=== PATIENT | male | born 1975 | race Caucasian/White ===

== ENCOUNTER 2023-03-13 09:38 | Emergency (ER) | payer BC, SELFPAY ==
[2023-03-13] VITALS (8 sets, daily range): BP systolic 180–187; BP diastolic 106–107; PULSE 53–79; RESP 16–21; TEMP 36.6; O2SAT 95–99
--- NOTE | ~2023-03-13 | XR_ITS ---
EXAMINATION: XR chest 1V portable DATE: 03/13/2023 10:19 INDICATION: Right-sided body numbness. TECHNIQUE: A single frontal view of the chest was obtained. COMPARISON: CT abdomen and pelvis 07/06/2016 FINDINGS: The chest demonstrates clear lungs without pneumonia, pleural effusion, or pneumothorax. Th e heart size is normal. IMPRESSION: 1. No acute cardiopulmonary disease. Reviewed, dictated and finalized at location A.
--- NOTE | ~2023-03-13 | CT_ITS ---
EXAMINATION: CTA brain carotid DATE: 03/13/2023 10:55 INDICATION: Right-sided body numbness. TECHNIQUE: Computed tomographic angiography (CTA) of the head was performed with 100 mL Omnipaque-350 intravenous contrast. CTA of the neck was performed with intravenous contrast. Automated exposure co ntrol and iterative reconstruction technique were employed. The dose-length product was 1271.03 mGy-c m. Maximum intensity projection and volume rendered 3D-reconstructions were created by the technologi st on a separate workstation. COMPARISON: Head CT 03/13/2023 FINDINGS: HEAD CTA: There is no intracranial hemorrhage, acute infarction, or abnormal intracranial mass lesion . The ventricles are normal in size. There is mucosal thickening in the paranasal sinuses. The mastoi d air cells are normal. Vertebral body heights are normal. The vertebral arteries are codominant. The re is no significant stenosis of basilar artery or the posterior cerebral arteries. There is no signi ficant stenosis of intracranial internal carotid arteries or anterior or middle cerebral arteries. An terior communicating artery is normal. The posterior communicating arteries are normal. There is no a neurysm. NECK CTA: There are no pathologically enlarged lymph nodes. There is a 3 mm thyroid nodule, likely no t clinically significant. There is no significant stenosis of the vertebral arteries. There is no vis ible plaque in the proximal internal carotid arteries. There is 0% stenosis of the proximal right int ernal carotid artery relative to normal distal artery lumen diameter (NASCET criteria). There is 0% s tenosis of the proximal left internal carotid artery relative to normal distal artery lumen diameter. There is mild cervical spondylosis. IMPRESSION: 1. Normal brain. No aneurysm or significant intracranial arterial stenosis. 2. 0% stenosis of the proximal internal carotid arteries relative to normal distal artery lumen diame ters (NASCET criteria). Reviewed, dictated and finalized at location A. IMPRESSION: 1. Normal brain. No aneurysm or significant intracranial arterial stenosis. 2. 0% stenosis of the proximal internal carotid arteries relative to normal dis beryl artery lumen diameters (NASCET criteria).
--- NOTE | ~2023-03-13 | CT_ITS ---
EXAMINATION: CT brain wo con DATE: 03/13/2023 10:06 INDICATION: Right-sided body numbness. TECHNIQUE: Computed tomography (CT) of the head was performed without intravenous contrast. The mA wa s adjusted according to patient size. Iterative reconstruction technique was employed. The dose-lengt h product was 605.33 mGy-cm. COMPARISON: None FINDINGS: There is no intracranial hemorrhage, acute infarction, or abnormal intracranial mass lesion . The ventricles are normal in size. There is mucosal thickening in the paranasal sinuses. The orbits are normal. The mastoid air cells are normal. IMPRESSION: 1. Normal brain. Reviewed, dictated and finalized at location A. IMPRESSION: 1. Normal brain.
--- NOTE | 2023-03-13 09:56 | ECG_ITS ---
Measurements Intervals [place] Rate: 57 P: 43 MT: 168 QRS: 69 QRSD: 114 T: 60 QT: 412 QTc: 402 Interpretive Statements SINUS BRADYCARDIA POSSIBLE LEFT ATRIAL ENLARGEMENT INTRAVENTRICULAR CONDUCTION DELAY DELAYED PRECORDIAL R/S TRANSITION BORDERLINE ECG NO PREVIOUS ECG AVAILABLE FOR COMPARISON Electronically Signed On 03-13-2023 16:42:24 CDT by Amarjit Trinh D.O.
[2023-03-13 10:23] LABS: Basophils Percent Auto 0.8 % (0.2-1.2); Eosinophils Absolute Auto 0.2 K/mm3 (0-0.3); Eosinophils Percent Auto 3.8 % (0-4.4); Hematocrit 46.5 % (42.0-52.0); Hemoglobin 15.6 g/dL (14.0-18.0); Immature Granulocyte Absolute 0.01 K/mm3 (0.00-0.031); Immature Granulocyte Percent A 0.2 % (0-0.5); Lymphocytes Absolute Auto 1.23 K/mm3 (0.9-3.2); Lymphocytes Percent Auto 25.8 % (18.3-44.2); Mean Corpuscular HGB Conc 33.5 g/dl (32-36); Mean Corpuscular Hemoglobin 29.1 pg (26-34); Mean Corpuscular Volume 86.6 fl (80-100); Mean Platelet Volume 10.4 fl (7.4-10.4); Monocytes Absolute Auto 0.5 K/mm3 (0.1-0.6); Monocytes Percent Auto 11.3 % (2.6-8.5); Neutrophils Absolute Auto 2.8 K/mm3 (1.3-6.7); Neutrophils Percent Auto 58.1 % (45.5-73.1); Platelet Count Result 249 k/mm3 (150-375); Red Blood Count 5.37 M/mm3 (4.6-6.20); Red Cell Distribution Width 12.7 % (11.5-14.5); White Blood Count 4.8 K/mm3 (4.5-10.0)
--- NOTE | 2023-03-13 10:27 | ED.NEUROSD ---
HPI - Neuro Symptoms/Deficit General Chief Complaint: Neuro Symptoms/Deficit Stated Complaint: headache with with right sided numbness Time Seen by Provider: 03/13/23 10:05 Source: patient and family Mode of arrival: ambulatory Limitations: no limitations History of Present Illness HPI Narrative: 47 years old white male was taken a shower this morning and at the end of it started feeling numbness and heaviness of the right upper extremity then right face then right lower extremity, got out of the shower and was unsteady, feeling that the whole right side is heavy and tingling and numb including right face. Patient feels like he have anesthesia of the right face,. The symptoms started at 830 this morning, came to our emergency room 45 minutes to 55 minutes later by private car. Patient reports frontal headache over the last few days. Patient is healthy otherwise, does not take medicine at home, denies any fever, chills, nausea, vomiting, chest pain, shortness of breath, back pain. Quite a bit of stress at work and at home lately. Related Data Home Medications Medication Instructions Recorded Confirmed No Home Medications 10/21/22 10/21/22 Allergies Allergy/AdvReac Type Severity Reaction Status Date / Time Penicillins Allergy Unknown Unknown Verified 03/13/23 10:35 Review of Systems Review of Systems: All systems reviewed & are unremarkable except as noted in HPI and below PMFSH Surgical History Surgical History Hx of inguinal hernia repair Family History Family History Father Diabetes mellitus Family history of malignant neoplasm Cancer Mother Diabetes mellitus CHF (congestive heart failure) Social History Social History Smoking status: Never smoker Alcohol intake: current Substance use: never Lack of Transportation: No Lack of Food: Never True Current Housing: I Have Housing Concerned About Future Housing: No Difficulty Paying Gas/Electric Bills: No Difficulty Paying for Meds: No Currently Unemployed: No Education: Associate Degree Difficulty w/ Childcare or Family Care: No Exam Narrative: General appearance: Well-developed, well-nourished Skin: Normal color Head: Normocephalic, nontraumatic Eyes: Clear conjunctiva ENT: Oropharynx normal, ears normal, nose normal Neck: Supple, nontender Chest and respiratory: Airway patent, no respiratory distress, no accessory muscle use Heart: Regular rate/rhythm Abdomen: Soft, nontender, no organomegaly, quiet bowel sounds Vascular: Normal peripheral pulses, normal capillary refill. Musculoskeletal: Normal range of motion, nontender back Neurologic: Alert and oriented ?3, weakness right upper and right lower extremity Course Reevaluation(s) Reevaluation #1: No new changes since arrival to the emergency room until the time of discharge, patient was started on tPA and flew to [facility] Date: 03/13/23 Time: 11:36 Consultations Consultation #1: DR BORGES, neurologist at [facility] who accepted patient transfer and I agreed with our management Date: 03/13/23 Time: 10:48 Consultation #2: DR BUCHANAN, emergency room at [facility] Date: 03/13/23 Time: 10:49 Vital Signs Vital signs: Vital Signs Blood Pressure 187/107 H 03/13/23 09:47 Pulse Oximetry 96 03/13/23 09:47 Temperature 36.6 C 03/13/23 10:00 Pulse Rate 79 03/13/23 11:00 Respiratory Rate 20 03/13/23 11:00 Blood Pressure 180/106 H 03/13/23 10:57 Pulse Oximetry 98 03/13/23
[2023-03-13 10:33] LABS: Alanine Aminotransferase 40 U/L (6-50); Albumin Level 4.1 g/dL (3.5-5.1); Alkaline Phosphatase 55 U/L (38-126); Anion Gap 7 mmol/L (8-16); Aspartate Amino Transferase 38 U/L (17-59); Bilirubin,Total 0.7 mg/dL (0.2-1.3); Blood Urea Nitrogen 19 mg/dL (9-20); Calcium 8.4 mg/dL (8.4-10.2); Carbon Dioxide 27 mmol/L (22-30); Chloride 105 mmol/L (98-107); Estimated CRCL calculation 129 ml/min; Estimated Glomerular Filt Rate > 60; Glucose 100 mg/dL (65-110); INR 0.9; Potassium 4.3 mmol/L (3.4-5.0); Prothrombin Time 12.5 Seconds (11.1-14.7); Sodium 139 mmol/L (137-145)
[2023-03-13 10:45] LABS: Troponin I < 0.012 ng/mL (0.000-0.034)
== END 2023-03-13 11:05 | disposition short-term general hospital (02) ==
PROVIDERS: Emergency Provider Emergency Medicine
DX: I63.9 Cerebral infarction, unspecified (principal); R00.1 Bradycardia, unspecified
CPT/HCPCS: 36415; 37195; 70450; 70496; 70498; 71045; 80053; 84484; 85025; 85610; 85730; 93005; 99285; J2997; Q9967

== ENCOUNTER → 2023-07-22 15:03 | Outpatient (CLI) | payer BC, SELFPAY ==
--- NOTE | ~2023-07-22 | MR_ITS ---
EXAMINATION: MR brain/brain stem wo/w con DATE: 07/22/2023 16:15 INDICATION: Transient ischemic attack. TECHNIQUE: Magnetic resonance imaging (MRI) of the brain and brainstem was performed without and with 20 mL MultiHance intravenous contrast. COMPARISON: Head CT 03/13/2023 FINDINGS: There is an acute infarct in left thalamus. There is no intracranial hemorrhage or abnormal mass lesion. The ventricles are normal in size. The paranasal sinuses are clear. The orbits are norm al. The mastoid air cells are normal. IMPRESSION: 1. Acute infarct in the left thalamus. Reviewed, dictated and finalized at location E.
--- NOTE | ~2023-07-22 | MR_ITS ---
EXAMINATION: MR cervical spine wo/w con DATE: 07/22/2023 16:15 INDICATION: Right-sided numbness. Transient ischemic attack. TECHNIQUE: Magnetic resonance imaging (MRI) of the cervical spine was performed without and with 20 m L MultiHance intravenous contrast. COMPARISON: None FINDINGS: There is kyphosis of cervical spine. Vertebral body heights and intervertebral disc heights are normal. The spinal cord signal intensity is normal. The following disc levels are specifically d iscussed: C2-C3: The disc does not extend beyond the endplate margin. There is no uncovertebral joint osteoarth ritis. There is mild bilateral facet joint osteoarthritis. There is no neural foraminal stenosis. The re is no central canal stenosis. C3-C4: The disc does not extend beyond the endplate margin. There is mild left uncovertebral joint os teoarthritis. There is mild bilateral facet joint osteoarthritis. There is no neural foraminal stenos is. There is no central canal stenosis. C4-C5: The disc does not extend beyond the endplate margin. There is no uncovertebral joint osteoarth ritis. There is no facet joint osteoarthritis. There is no neural foraminal stenosis. There is no kyler tral canal stenosis. C5-C6: The disc does not extend beyond the endplate margin. There is no uncovertebral joint osteoarth ritis. There is mild bilateral facet joint osteoarthritis. There is no neural foraminal stenosis. The re is no central canal stenosis. C6-C7: The disc does not extend beyond the endplate margin. There is no uncovertebral joint osteoarth ritis. There is mild bilateral facet joint osteoarthritis. There is no neural foraminal stenosis. The re is no central canal stenosis. C7-T1: The disc does not extend beyond the endplate margin. There is no uncovertebral joint osteoarth ritis. There is severe bilateral facet joint osteoarthritis. There is mild bilateral neural foraminal stenosis. There is no central canal stenosis. IMPRESSION: 1. Mild cervical spondylosis. Reviewed, dictated and finalized at location E.
== END ==
DX: G04.91 Myelitis, unspecified (principal); G45.9 Transient cerebral ischemic attack, unspecified; M47.892 Other spondylosis, cervical region
CPT/HCPCS: 70553; 72156; A9577

== ENCOUNTER 2023-12-09 11:29 | Outpatient (CLI) | payer BC, SELFPAY ==
--- NOTE | ~2023-12-09 | MR_ITS ---
EXAMINATION: MR brain/brain stem wo con DATE: 12/09/2023 12:05 INDICATION: Cerebral vascular accident. Right arm, right leg, and face numbness. TECHNIQUE: Magnetic resonance imaging (MRI) of the brain and brainstem was performed without intraven ous contrast. COMPARISON: Brain MRI 07/22/2023, head CT 03/13/2023 FINDINGS: There is no intracranial hemorrhage, acute infarction, or abnormal intracranial mass lesion . There is an old infarct in left thalamus. The ventricles are normal in size. There is mild mucosal thickening in the paranasal sinuses. The mastoid air cells are normal. IMPRESSION: 1. Old infarct in the left thalamus. Reviewed, dictated and finalized at location E. 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
== END 2023-12-09 11:30 ==
PROVIDERS: PCP Physician Assistant Medical
DX: I63.89 Other cerebral infarction (principal)
CPT/HCPCS: 70551

== ENCOUNTER 2024-08-11 06:42 | Outpatient (CLI) | payer BC, SELFPAY ==
--- NOTE | 2024-08-15 11:12 | WPDNEUROLOGY ---
Neurology EEG Report General Information Date of Study: 08/11/24 TEST Eeg DIAGNOSIS cerebral infarction. CONDITION OF RECORDING Awake, drowsy and asleep. EEG NUMBER [id number] CLINICAL HISTORY Patient reports he has had 2 strokes about a year ago that affected his right side of the body. Everything seemed to get better but feels like some of the symptoms on the right side have returned. Complains of right-sided facial, right upper extremity and right lower extremity numbness. EEG DESCRIPTION Basic resting occipital frequency consists of fairly well-organized low voltage 9 to 11 hertz per 2nd alpha admixed with low-voltage 15 to 18 hertz per 2nd beta. Low-voltage beta activity seen diffusely admixed with waxing and waning posterior alpha rhythm interspersed with intermittent EKG artifacts. Bilateral symmetrical sleep activity is noted with mixture of alpha beta and theta activity evolving into deeper stage of sleep with bilateral symmetrical sleep spindles. Hyperventilation not done. Photic stimulation produced normal drive. Non paroxysmal. Nonfocal. Nonlateralizing. IMPRESSION Normal record.
== END 2024-08-11 06:43 | disposition home or self-care (01) ==
PROVIDERS: PCP Physician Assistant Medical; Visit Provider Physician Assistant Medical
DX: I63.9 Cerebral infarction, unspecified (principal); G62.9 Polyneuropathy, unspecified
CPT/HCPCS: 95816

== ENCOUNTER 2024-08-28 09:34 | Outpatient (CLI) | payer BC, SELFPAY ==
--- NOTE | ~2024-08-28 | MR_ITS ---
EXAMINATION: MR brain/brain stem wo/w con DATE: 08/28/2024 10:25 INDICATION: Cervical infarction, unspecified. TECHNIQUE: Magnetic resonance imaging (MRI) of the brain and brainstem was performed without and with 20 mL MultiHance intravenous contrast. COMPARISON: Brain MRI 12/09/2023 FINDINGS: There is an old infarct in the left thalamus. There is no intracranial hemorrhage, acute in farction, or abnormal intracranial mass lesion. The ventricles are normal in size. The mastoid air ce lls are normal. There is mild mucosal thickening in the paranasal sinuses. The orbits are normal. IMPRESSION: 1. Old infarct in the left thalamus. Reviewed, dictated and finalized at location A. 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
== END 2024-08-28 09:35 | disposition home or self-care (01) ==
LOC: MICIMG 09:35
PROVIDERS: PCP Physician Assistant Medical; Visit Provider Physician Assistant Medical
DX: I63.9 Cerebral infarction, unspecified (principal); G62.9 Polyneuropathy, unspecified
CPT/HCPCS: 70553; A9577

== ENCOUNTER 2024-12-19 15:56 | Emergency (ER) | payer BC, SELFPAY ==
[2024-12-19 16:05] VITALS: BP 132/83; PULSE 107; RESP 18; TEMP 36.7; O2SAT 96
--- NOTE | 2024-12-19 16:17 | ED_ITS ---
HPI - URI/Sore Throat General Chief Complaint: Upper Respiratory Infection Stated Complaint: cold / congestion / fever Source: patient and RN notes reviewed Mode of arrival: ambulatory Limitations: no limitations History of Present Illness HPI Narrative: 49 y/o male with hx HTN and CVA presented for c/o headache, body aches, sinus drainage/congestion, cough, fever/chills. Onset 3 days. Started with nausea and diarrhea today. Denies sob, wheezing, or lethargy. Taking Tylenol and Coricidin. MD elicited complaint: cough Related Data Home Medications ?Medication ?Instructions ?Recorded ?Confirmed ?Last Taken ?Type atorvastatin 80 mg tablet 80 mg PO DAILY 11/26/23 11/17/24 Unknown History cyanocobalamin (vitamin B-12) 2,000 mcg PO DAILY 11/29/23 11/17/24 Unknown History 2,000 mcg tablet Allergies Allergy/AdvReac Type Severity Reaction Status Date / Time Penicillins Allergy Unknown Unknown Verified 12/19/24 16:23 Review of Systems Review of Systems: per [facility] Past Medical History Medical History CVA (cerebral vascular accident) 02/2023 probable TIA, 07/18/23 repeat YURIY (obstructive sleep apnea) HTN (hypertension) Dyslipidemia Surgical History Surgical History Hx of inguinal hernia repair Family History Family History Father Diabetes mellitus Family history of malignant neoplasm Cancer Mother Diabetes mellitus CHF (congestive heart failure) Social History Social History Social History: 11/17/24 patient declined SDOH Smoking status: Never smoker Alcohol intake: current Substance use: never Substance use type: does not use Do You Feel Safe in your Home?: Yes Lack of Transportation: No Lack of Food: Never True Current Housing: Decline to Answer Concerned About Future Housing: Decline to Answer Difficulty Paying Gas/Electric Bills: Decline to Answer Difficulty Paying for Meds: Decline to Answer Currently Unemployed: Decline to Answer Education: Decline to Answer Difficulty w/ Childcare or Family Care: No Living arrangements: with family Occupation/Education: occupation Gender identity (if verbalized by the patient): Male Sexual Orientation (if Verbalized by the Patient): Straight or Heterosexual Exam Narrative: GENERAL: mildly Ill-appearing, nontoxic EYES: PERRLA, conjunctivae clear ENT: Mucous membranes moist. TM pearly osborne with dull light reflex bilaterally; no tragal tenderness. Oropharynx erythematous without lesions or exudate, no drooling, no hoarseness, no trismus, uvula midline. CHEST: Clear to auscultation, breath sounds equal. No wheezing, rhonchi, rales, or stridor. No respiratory distress, speaks in full sentences. HEART: Regular rate and rhythm. SKIN: Warm, dry, no rash. NEURO: Alert and oriented x3. PSYCH: Normal mood and affect Course Course Emergency Course: Patient is aware of diagnosis, understands and agrees to treatment plan. Anticipatory guidance given. Patient agrees to follow-up as directed and is aware of reasons to seek care at the emergency department. Portions of this record may have been created with voice recognition software Level of Care: Express Care Visit Vital Signs Vital signs: Vital Signs Temperature 98.1 F 12/19/24 16:05 Pulse Rate 107 H 12/19/24 16:05 Respiratory Rate 18 12/19/24 16:05 Blood Pressure 132/83 12/19/24 16:05 Pulse Oximetry 96 12/19/24 16:05 Oxygen Delivery Room Air 12/19/24 16:05 Temperature 98.1 F 12/19/24 16:05 Pulse Rate 107 H 12/19/24 16:05 Respiratory Rate 18 12/19/24 16:05 Blood Pressure 132/83 12/19/24 16:05 Pulse Oximetry 96 12/19/24 16:05 Oxygen Delivery Room Air 12/19/24 16:05 reviewed MDM - URI/Sore Throat MDM Narrative Medical decision making narrative: Positive flu. Discussed physical exam findings. Advised supportive measures and signs/symptoms to go to the ER. Pt is appropriate for outpt treatment and f/u. Differential Diagnosis Differential diagnosis: Likely upper respiratory infection, sinusitis, viral infection, bronchitis and influenza Lab Data Labs: Lab Results 12/19/24 Range/Units 16:19 POC Influenza A Ag Positive (Negative) POC Influenza B Ag Negative (Negative) POC SARS CoV-2 Ag Negative (Negative) Discharge Plan Discharge Clinical Impression: Influenza Patient Disposition: Home, Self-Care Condition: Stable Instructions: Antibiotic Form, Influenza (ED) Additional Instructions: Influenza positive You should avoid crowds until you are fever free for 24 hours without the use of fever reducing medications, or the symptoms are improved Rest. Drink plenty of fluids. Tylenol 1000mg every 8 hours as needed for pain/fever Flonase spray and Zyrtec (or Claritin/Michell) for sinus pressure/congestion over the counter Cough syrup may cause drowsiness; avoid driving or take it at night time. Follow up with your primary care provider as needed Go to the ER for worsening symptoms or concerns Patient Language: Citizen Of [place] Prescriptions: No Action atorvastatin 80 mg tablet 80 mg PO DAILY cefdinir 300 mg capsule 300 mg PO Q12H Qty: 20 0RF cyanocobalamin (vitamin B-12) 2,000 mcg tablet 2,000 mcg PO DAILY losartan 50 mg tablet 50 mg PO DAILY Qty: 90 0RF losartan-hydrochlorothiazide 50-12.5 mg tablet 1 tablet PO DAILY Qty: 90 0RF aspirin 81 mg tablet,chewable 81 mg PO DAILY Qty: 90 0RF Follow-up/Referrals: Phylicia Gill PA-C [Primary Care Provider] - Stand Alone Forms: Work/School Release IP Time of Disposition: 16:33
[2024-12-19 16:21] LABS: EDCOVIDSCREEN Negative (Negative); EDINFLUASCREEN Positive (Negative); EDINFLUBSCREEN Negative (Negative)
--- OUTSIDE RECORDS SUMMARY | 2024-12-19 18:03 | XMS_ITS | Encounter Summary ---
Author Organization [facility] Address [facility] [place] [address] Care Team Providers Care Dairy Grazer Name Role Phone Phylicia Gill PA-C Primary Care Provider [phone] Encounter Details Date Type Department Care Team (Late st Contact Info) Description 11/18/2023 Abstract [facility] [address] [place] [address] Joanna Nguyen MA Social History Tobacco Use Types Packs/Day Years Used Date Smoking Tobacco: Never Smokeless Tobacco: Never Alcohol Use Standard Drinks/Week Comments Yes 0 (1 standard drink = 0.6 oz pur e alcohol) 1-3/week Sex and Gender Information Value Date Recorded Sex Assigned at Male 11/29/2024 2:21 PM SPECIAL EDUCATION TEACHING ASSISTANT Legal Sex Male 7:57 PM CDT Gender Identity Not on file Sexual Orientation Not on file documented as of this encounter Plan of Treatment Upcoming Encounters Date Type Department Care Team (Late st Contact Info) Description 05/31/2025 10:30 AM CDT [facility] [address] [place] [phone] Jensen Michele MD [facility]. [address] [place] [address] 10/29/2025 8:00 AM SPECIAL EDUCATION TEACHING ASSISTANT Office Visit [facility] [address] [facility], [address] [place] [address] Daxa Pappas MD [address] [place] [address] documented as of this encounter Procedures Procedure Name Priority Date/Time Associated Diagnosis Comments AST/SGOT Routine 02/24/2024 LIPID PANEL Routine 02/24/2024 ALT/SGPT Routine 02/24/2024 COMPREHENSIVE METABOLIC PANEL Routine 08/10/2023 LIPID PANEL Routine 08/10/2023 documented in this encounter Results * LIPID PANEL (02/24/2024) CHOLESTEROL 144 HDL 39 TRIGLYCERIDES 104 NON HDL CHOLESTEROL 105 LDL (CALCULATED) 85 02/24/2024 us Default History Genericprovider LABORATORY Edited Result - Final * AST/SGOT (02/24/2024) AST 22 02/24/2024 us Default History Genericprovider LABORATORY Edited Result - Final * ALT/SGPT (02/24/2024) ALT 32 02/24/2024 us Default History Genericprovider LABORATORY Final Result * COMPREHENSIVE METABOLIC PANEL (08/10/2023) AST 20 ALT 28 us Default History Genericprovider LABORATORY Final Result * LIPID PANEL (08/10/2023) CHOLESTEROL 142 TRIGLYCERIDES 122 HDL 36 LDL (CALCULATED) 84 us Default History Genericprovider LABORATORY Final Result documented in this encounter Visit Diagnoses Not on filedocumented in this encounter Care Teams Dairy Grazer Relationship Specialty Start Date End Date Phylicia Gill PA-C [address] [place] [id number] PCP - General PHYSICIAN FACILITIES OPERATIONS TECHNICIAN 08/03/23 documented as of this encounter
--- OUTSIDE RECORDS SUMMARY | 2024-12-19 18:03 | XMS_ITS | Patient Health Record ---
Author Organization [facility] Address [address] [place] [address] Care Team Providers Care Motorcycle Fabricator Name Role Phone Hiro ARAIZA, Dany Primary Care Provider Unavailab everardo ARMIJO MANAGER OF CHANGE, CM Unavailable Hill PA, Susie Unavailable Unavailable ALLERGIES No Known Allergies REASON FOR REFERRAL No Information MEDICATIONS Medication SIG (Take, Route, Fr equency, Duration) Notes Start Date End Date Status PriLOSEC 20 MG 1 capsule 30 minutes before morning meal Orally Once a day Active [employer] Colon Health - as directed Orally Active PROBLEMS Problem Type ICD Code Onset Dates Problem Status W/U Status Risk SNOMED Code Notes Problem Right upper quadrant pain (R10.11) Active confirmed Right upper quadrant pain (771188448) Problem Left lower quadrant pain (R10.32) Active confirmed Left lower quadrant pain (092006316) Problem Diarrhea, unspecified (R19.7) Active confirmed Diarrhea (01957550) PLAN OF TREATMENT Pending Test Test Name Order Date Ultrasound : Right Upper Quadrant 2020 Colonoscopy 06/10/2021 Insurance Providers Payer Name Payer Address Payer Phone Subscriber Number Group Number Insured Name Patient Relationship to Insured Coverage Start Date Coverage End Date [employer] [place] [address] [place] [address] [id number] Tod Babin Self - patient is the insured MEDICAL (GENERAL) HISTORY Surgical History Surgery Date(Month/Year) bilateral hernia repair 2013
--- OUTSIDE RECORDS SUMMARY | 2024-12-19 18:03 | XMS_ITS | Clinical Summary ---
Author Organization [facility] Address [facility] [place] [address] Care Team Providers Care Inter Fold Roll Cutter Name Role Phone Phylicia Gill PA-C Primary Care Provider [phone] Allergies Active Allergy Reactions Criticality Noted Date Comments Penicillins Rash Medium 04/30/2023 Medications aspirin 81 MG chewable tablet Chew 1 tablet (81 mg total) by mouth daily. Active losartan-hydroC HLOROthiazide (HYZAAR) 50-12.5 MG tablet Take 1 tablet by mouth daily. Active atorvastatin (LIPITOR) 80 MG tabletIndicatio ns:Cerebrovascu lar accident (CVA) due to other mechanism ([facility]) Take 1 tablet (80 mg total) by mouth nightly at bedtime. 90 tablet 3 4 01/26/20 25 Active losartan (COZAAR) 50 MG tablet Take 1 tablet (50 mg total) by mouth daily. 4 11/23/19 25 Discontinue d(Discontin ued by another clinician) Active Problems Problem Noted Date Diagnosed Date CVA (cerebral vascular accident) ([facility]) 08/11/2023 Hypertension, unspecified type 03/13/2023 Encounters Date Type Department Care Team Description 11/23/2024 11:00 AM RETAIL AGENT Office Visit [facility] [address] [place] [phone] Mellisa Stinson FNP Neurologic Problem; Hypertension; Lipids 11/23/2024 Travel 10/27/2024 9:20 AM RETAIL AGENT Office Visit [facility] - [address], [address] [place] [phone] Daxa Pappas MD Follow Up 10/27/2024 Travel from Last 3 Months Family History Medical History Relation Comments Diabetes Father Heart Attack Maternal Grandfather Diabetes Mother Relation Status Comments Father Maternal Grandfather Mother Social History Tobacco Use Types Packs/Day Years Used Date Smoking Tobacco: Never Smokeless Tobacco: Never Tobacco Cessation:Counseling Given: Yes Alcohol Use Standard Drinks/Week Comments Yes 0 (1 standard drink = 0.6 oz pur e alcohol) 1-3/week PHQ-2 Answer Date Recorded Patient Health Questionnaire-2 Score 0 10/27/2024 Sex and Gender Information Value Date Recorded Sex Assigned at Male 11/29/2024 2:21 PM RETAIL AGENT Legal Sex Male 7:57 PM CDT Gender Identity Not on file Sexual Orientation Not on file Last Filed Vital Signs Vital Sign Reading Time Taken Comments Blood Pressure 138/88 11/23/2024 11:01 AM RETAIL AGENT Pulse 60 11/23/2024 11:01 AM RETAIL AGENT Temperature 36.8 C (98.3 F) 10/27/2023 7:21 AM RETAIL AGENT Respiratory Rate - - Oxygen Saturation 94% 10/27/2024 9:01 AM RETAIL AGENT Inhaled Oxygen Concentration - - Weight 125.6 kg (277 lb) 11/23/2024 11:01 AM RETAIL AGENT Height 185.4 cm (6' 1 ) 11/23/2024 11:01 AM RETAIL AGENT Body Mass Index 36.55 11/23/2024 11:01 AM RETAIL AGENT Plan of Treatment Upcoming Encounters Date Type Department Care Team (Late st Contact Info) Description 05/31/2025 10:30 AM CDT [facility] [address] [place] [phone] Jensen Michele MD [facility] [address] [place] [address] 10/29/2025 8:00 AM RETAIL AGENT Office Visit [facility] - [facility] [address] [facility], [address] [place] [phone] Daxa Pappas MD [address] [place] [address] Health Maintenance Due Date Last Done Comments Colorectal Cancer Screening Colonoscopy (10 Years) 1973 Annual Physical 1976 Hepatitis C 1991 DTaP, Tdap and Td Vaccines ( 1 - Tdap) 1992 Hepatitis B Vaccines (1 of 3 - 19+ 3-dose series) 1992 Zoster Vaccines (1 of 2) 2023 COVID-19 Vaccine (1 - 2023-2 5 season) 2024 Influenza Adult (#1) 2024 PHQ-2 (Physician [place]) Completed 10/27/2024 Meningococcal B Vaccine Aged Out No l onger eligible based on patient's age to complete this topic Meningococcal Vaccine Aged Out No eliud page eligible based on patient's age to complete this topic Pneumococcal Vaccine: Pediat rics (0 to 5 Years) and At-Risk Patients (6 to 64 Years) Aged Out No longer eligi ble based on patient's age to complete this topic RSV Immunizations Under 20 Months Aged Out No longer eligible based on patient's age to complete this topic [place] [address] [address] [facility] Care Teams Inter Fold Roll Cutter Relationship Specialty Start Date End Date Phylicia Gill PA-C [address] [place], [place] [id number] [place] [address] PCP - General 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
== END 2024-12-19 16:48 | disposition home or self-care (01) ==
PROVIDERS: Emergency Provider Nurse Practitioner Family; PCP Physician Assistant Medical
DX: J10.1 Influenza due to other identified influenza virus with other respiratory manifestations (principal); Z20.822 Contact with and (suspected) exposure to COVID-19; I10 Essential (primary) hypertension; E78.5 Hyperlipidemia, unspecified; Z86.73 Personal history of transient ischemic attack (TIA), and cerebral infarction without residual deficits
CPT/HCPCS: 87426; 87804; 99212; G0463